=== PATIENT | female | born 1970 | race Caucasian/White ===

== ENCOUNTER → 2016-04-22 | Outpatient (CLI) | payer MEDICARE ==
[2016-04-22 08:54] LABS: ANION GAP 14 (5-19); BLOOD UREA NITROGEN 20 mg/dL (7-20); CALCIUM 10.3 mg/dL (8.4-10.2); CARBON DIOXIDE 31 mmol/L (22-30); CHLORIDE 96 mmol/L (98-107); GLUCOSE 123 mg/dL (75-110); POTASSIUM 3.7 mmol/L (3.6-5.0)
== END ==
LOC: LAB 08:10
PROVIDERS: ATTEND Internal Medicine
DX: I50.22 Chronic systolic (congestive) heart failure (principal)
CPT/HCPCS: 36415; 80048

== ENCOUNTER → 2016-05-12 | Outpatient (CLI) | payer MEDICARE ==
[2016-05-12 15:40] LABS: ANION GAP 15 (5-19); BLOOD UREA NITROGEN 21 mg/dL (7-20); CARBON DIOXIDE 30 mmol/L (22-30); CHLORIDE 97 mmol/L (98-107); CREATININE RESULT 0.76 mg/dL (0.52-1.25); GLUCOSE 105 mg/dL (75-110); POTASSIUM 3.6 mmol/L (3.6-5.0); SODIUM 141.9 mmol/L (137-145)
== END ==
LOC: LAB 15:03
PROVIDERS: ATTEND Internal Medicine
DX: I42.8 Other cardiomyopathies (principal); Z79.899 Other long term (current) drug therapy
CPT/HCPCS: 36415; 80048

== ENCOUNTER → 2016-06-11 | Outpatient (CLI) | payer MEDICARE, MEDICAID ==
[2016-06-11 15:05] LABS: ALBUMIN 4.8 g/dL (3.5-5.0); ANION GAP 18 (5-19); BLOOD UREA NITROGEN 18 mg/dL (7-20); CALCIUM 10.6 mg/dL (8.4-10.2); CARBON DIOXIDE 34 mmol/L (22-30); CHLORIDE 90 mmol/L (98-107); CREATININE RESULT 1.02 mg/dL (0.52-1.25); GLUCOSE 173 mg/dL (75-110); PHOSPHORUS 3.3 mg/dL (2.5-4.5); POTASSIUM 3.9 mmol/L (3.6-5.0); SODIUM 142.3 mmol/L (137-145)
== END ==
LOC: LAB 14:25
PROVIDERS: ATTEND Internal Medicine
DX: E27.49 Other adrenocortical insufficiency (principal)
CPT/HCPCS: 36415; 80069

== ENCOUNTER → 2016-07-03 | Outpatient (CLI) | payer MEDICARE, MEDICAID ==
[2016-07-03 13:22] LABS: ALBUMIN 4.1 g/dL (3.5-5.0); ANION GAP 13 (5-19); BLOOD UREA NITROGEN 19 mg/dL (7-20); CALCIUM 9.9 mg/dL (8.4-10.2); CARBON DIOXIDE 34 mmol/L (22-30); CHLORIDE 90 mmol/L (98-107); CREATININE RESULT 0.95 mg/dL (0.52-1.25); GLUCOSE 157 mg/dL (75-110); PHOSPHORUS 2.8 mg/dL (2.5-4.5)
[2016-07-04 10:17] LABS: POTASSIUM 2.9 mmol/L (3.6-5.0)
[2016-07-04 13:47] LABS: VITAMIN D 25-HYDROXY 24.3 ng/mL (30.0-100.0)
== END ==
LOC: LAB 12:39
PROVIDERS: ATTEND Internal Medicine
DX: E83.52 Hypercalcemia (principal); E27.49 Other adrenocortical insufficiency
CPT/HCPCS: 36415; 80069; 82306; 83970

== ENCOUNTER 2016-07-18 04:51 | Emergency (ER) | payer MEDICARE, MEDICAID ==
[2016-07-18] MEDS ORDERED: ASPIRIN 81 MG TABLET, CHEWABLE PO ONE (05:01)
--- NOTE | 2016-07-18 05:59 | RADIOLOGY REPORT (SQ) ---
EXAM DESCRIPTION: CHEST SINGLE VIEW COMPLETED DATE/TIME: 07/18/2016 5:48 am REASON FOR STUDY: CHEST PAIN COMPARISON: Chest x-ray 10/25/2015. EXAM PARAMETERS: NUMBER OF VIEWS: One view. TECHNIQUE: Single frontal radiographic view of the chest acquired. RADIATION DOSE: NA LIMITATIONS: None. FINDINGS: LUNGS AND PLEURA: No consolidation, pneumothorax or pleural effusion. MEDIASTINUM AND HILAR STRUCTURES: No masses. Contour normal. HEART AND VASCULAR STRUCTURES: Heart normal in size. No evidence for failure. BONES: No acute findings. HARDWARE: There is a left-sided pacemaker. IMPRESSION: NO ACUTE RADIOGRAPHIC FINDING IN THE CHEST. TECHNICAL DOCUMENTATION: JOB ID: [id number]
[2016-07-18 06:04] LABS: ABSOLUTE EOSINOPHILS # (AUTO) 0.3 10^3/uL (0.0-0.6); ABSOLUTE MONOCYTES (AUTO) 0.6 10^3/uL (0.1-1.4); ABSOLUTE NEUT (AUTO) 4.2 10^3/uL (1.7-8.2); BASOPHILS % (AUTO) 0.4 % (0-2); EOSINOPHILS % (AUTO) 3.7 % (0-6); HEMOGLOBIN 11.6 g/dL (12.0-15.5); HGB HCT DIFFERENCE -0.2; LYMPHOCYTES % (AUTO) 36.5 % (13-45); MEAN CORPUSCULAR HEMOGLOBIN 30.3 pg (27.0-33.4); MEAN CORPUSCULAR HGB CONC 33.2 g/dL (32.0-36.0); MEAN CORPUSCULAR VOLUME 92 fl (80-97); MONOCYTES % (AUTO) 7.3 % (3-13); RED BLOOD COUNT 3.82 10^6/uL (3.72-5.28); RED CELL DISTRIBUTION WIDTH 14.9 % (11.5-14.0); SEGMENTED NEUTROPHILS % (AUTO) 52.1 % (42-78); WHITE BLOOD COUNT 8.1 10^3/uL (4.0-10.5)
[2016-07-18 06:16] LABS: ALANINE AMINOTRANSFERASE 32 U/L (9-52); ALKALINE PHOSPHATASE 73 U/L (38-126); ANION GAP 13 (5-19); ASPARTATE AMINO TRANSFERASE 25 U/L (14-36); BILIRUBIN,DIRECT 0.3 mg/dL (0.0-0.4); BILIRUBIN,TOTAL 0.6 mg/dL (0.2-1.3); BLOOD UREA NITROGEN 22 mg/dL (7-20); CALCIUM 9.7 mg/dL (8.4-10.2); CARBON DIOXIDE 31 mmol/L (22-30); CHLORIDE 98 mmol/L (98-107); CREATINE KINASE 101 U/L (30-135); CREATININE RESULT 1.52 mg/dL (0.52-1.25); GLUCOSE 131 mg/dL (75-110); POTASSIUM 3.5 mmol/L (3.6-5.0); SODIUM 141.6 mmol/L (137-145); TOTAL PROTEIN 7.1 g/dL (6.3-8.2)
[2016-07-18 06:28] LABS: CREATINE KINASE MB 0.79 ng/mL (<4.55); TROPONIN I 0.021 ng/mL
[2016-07-18] MEDS ORDERED: PROMETHAZINE HCL 25 MG TABLET PO ONE (06:39)
--- NOTE | 2016-07-18 06:40 | ER Document Report ---
ED Cardiac - General Mode of Arrival: Medic Information source: Patient TRAVEL OUTSIDE OF THE U.[place]. IN LAST 30 DAYS: No - HPI Patient complains to provider of: Chest pain, Shortness of breath Chest pain location: Under breast - left Quality of pain: Sharp, Stabbing Cardiac risk factors: Hx CHF. denies: Hx NE Associated symptoms: Other - see notes above0 Exacerbated by: Denies <ERIKA DOVER - Last Filed: 07/18/16 14:42> <MARIA ESTHER BROWN - Last Filed: 07/18/16 15:08> - General Chief Complaint: Chest Pain Stated Complaint: CHEST PAIN Time Seen by Provider: 07/18/16 06:20 Notes: 46 year old female with history of non-ischemic cardiomyopathy causing CHF ( with a pacemaker), hypertension, and hypokalemia presents to the ED via EMS complaining of intermittent sharp, stabbing left chest pain that started 5 days ago. Patient reports that her chest pain episodes last anywhere from 10-30 seconds. Patient claims that her symptoms might have precipitated after 'over doing' it 6 days ago. 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 Patient is additionally complaining of nausea, shortness of breath (associated with the chest pains), edema, vomiting, and 'having the shakes' which started last night. Patient's reports that the patient was hospitalized for 2 weeks at [facility] and discharged on 07/04/2016 for hypokalemia and received '60 bags of potassium on top of her daily oral potassium'. Patient reports that her lowest potassium count has been 2.3. Patient states that she has seen an hair and makeup designer regarding her hypokalemia and it was determined that it may be related to to her gastric sleeve. Patient is currently on potassium supplements and denies taking any magnesium supplements. Patient reports that she does not have stress tests performed because she has syncopal episodes during them, but has had cardiac catheterizations in the past with the most recent in January 2016 which was negative for any blockages. Patient's last ejection fraction was 20%. Patient claims that she is trying to get onto the heart transplant list. Senior Staff Accountant: Dr. Kirkpatrick ([facility]) (ERIKA DOVER) - Related Data Allergies/Adverse Reactions: clonazepam [From Klonopin] Allergy (Verified 04/15/15 16:28) ketorolac tromethamine [From Toradol] Allergy (Verified 04/15/15 16:28) lisinopril [Lisinopril] Allergy (Verified 04/15/15 16:28) morphine [Morphine] Allergy (Verified 04/15/15 16:28) tramadol [Tramadol] Allergy (Verified 04/15/15 16:28) Past Medical History - General Information source: Patient - Social History Smoking Status: Never Smoker Chew tobacco use (# tins/day): No Frequency of alcohol use: None Drug Abuse: None Family History: DM, Hypertension, Other - seizures Patient has suicidal ideation: No Patient has homicidal ideation: No - Past Medical History Cardiac Medical History: Reports: Hx Congestive Heart Failure - Congestive cardiomyopathy, Hx Hypertension Pulmonary Medical History: Reports: Hx Asthma Denies: Hx Tuberculosis Endocrine Medical History: Reports: Other - hypokalemia Renal/ Medical History: Denies: Hx Peritoneal Dialysis GI Medical History: Reports: Hx Gastroesophageal Reflux Disease Psychiatric Medical History: Reports: Hx Depression Past Surgical History: Reports: Hx Cardiac Catheterization - Recent January 2016, Hx Cholecystectomy, Hx Orthopedic Surgery - R hip labral tear repair, Hx Pacemaker - Pacemaker/defibrillator, Hx Tubal Ligation - Immunizations Hx Diphtheria, Pertussis, Tetanus Vaccination: Yes Hx Pneumococcal Vaccination: 02/23/12 <ERIKA DOVER - Last Filed: 07/18/16 14:42> Review of Systems - Review of Systems Constitutional: No symptoms reported EENT: No symptoms reported Cardiovascular: See HPI, Chest pain - Left sided, Edema Respiratory: See HPI, Short of breath Gastrointestinal: See HPI, Nausea, Vomiting. denies: Diarrhea Genitourinary: No symptoms reported Female Genitourinary: No symptoms reported Musculoskeletal: No symptoms reported Skin: No symptoms reported Hematologic/Lymphatic: No symptoms reported Neurological/Psychological: No symptoms reported -: Yes All other systems reviewed and negative <ERIKA DOVER - Last Filed: 07/18/16 14:42> Physical Exam <ERIKA DOVER - Last Filed: 07/18/16 14:42> <MARIA ESTHER BROWN - Last Filed: 07/18/16 15:08> - Vital signs Vitals: Temp Pulse Resp BP Pulse Ox 98.4 F 84 16 118/95 H 98 07/18/16 04:59 07/18/16 04:59 07/18/16 04:59 07/18/16 04:59 07/18/16 04:59 - Notes Notes: GENERAL: Alert, interacts well. No acute distress. HEAD: Normocephalic, atraumatic. EYES: Pupils equal, round, and reactive to light. Extraocular movements intact. ENT: Oral mucosa moist. NECK: Full range of motion. Supple. Trachea midline. LUNGS: Clear to auscultation bilaterally, no wheezes, rales, or rhonchi. No respiratory distress. HEART: Regular rate and rhythm. No murmurs, gallops, or rubs. Wincing in the room correlating with a PVC on monitor. ABDOMEN: Soft, non-tender. Non-distended. Bowel sounds present in all 4 quadrants. Overweight. EXTREMITIES: Moves all 4 extremities spontaneously. No edema, radial and dorsalis pedis pulses 2/4 bilaterally. No cyanosis. NEUROLOGICAL: Alert and oriented x3. Normal speech. Biceps and patellar DTRs 2+ bilaterally. PSYCH: Normal affect, normal mood. SKIN: Warm, dry, normal turgor. No rashes or lesions noted. (ERIKA DOVER) Course - Laboratory Result Diagrams: 07/18/16 05:48 07/18/16 05:48 - Diagnostic Test Radiology reviewed: Image reviewed, Reports reviewed - Consults [facility] Time consulted: 11:33 [facility] Time consulted: 13:00 <ERIKA DOVER - Last Filed: 07/18/16 14:42> - Laboratory Result Diagrams: 07/18/16 05:48 07/18/16 05:48 <MARIA ESTHER BROWN - Last Filed: 07/18/16 15:08> - Re-evaluation Re-evalutation: 07/18/16 13:21 CBC shows mild chronic anemia with hemoglobin 11.6, platelets normal, potassium is remarkably good for this patient at 3.5, magnesium is normal, BUN and creatinine are both elevated at 22 and 1.52 respectively, cardiac enzymes are negative 2 and trending downward troponin is initially 0.021 and then 4 hours later is 0.019. ProBNP minimally elevated at 693, patient does not have any rales nor is there any vascular congestion on her chest x-ray. EKG has new T- wave inversions in V5 and V6 that do not involve her change in any way over the course of the visit. On the emergency department patient has had several PVCs although not more than 10 in an hour, when she has these PVCs they do correspond with a recurrence of her pain. This pain does not appear to be ischemic cardiac in nature. Discussed my findings with Mame Delatorre' s nurse the patient's washery boss from [facility], agrees that there is no indication for admission at this time, gave me her phone number so the patient could call and discuss any further concerns with them. Patient will be discharged to home. (MARIA ESTHER BROWN) - Vital Signs Vital signs: Temp Pulse Resp BP Pulse Ox 97.9 F 84 17 111/69 100 07/18/16 13:30 07/18/16 04:59 07/18/16 13:30 07/18/16 13:30 07/18/16 13:30 - Laboratory Laboratory results interpreted by me: 07/18/16 07/18/16 07/18/16 05:48 05:48 05:48 Hgb 11.6 L Hct 35.0 L RDW 14.9 H Potassium 3.5 L Carbon Dioxide 31 H BUN 22 H Creatinine 1.52 H Est GFR ( Amer) 45 L Est GFR (Non-Af Amer) 37 L Glucose 131 H NT-Pro-B Natriuret Pep 693 H - Diagnostic Test Radiology results interpreted by me: 07/18/16 07:30 Chest x-ray is negative for CHF. (ERIKA DOVER) - EKG Interpretation by Me Additional EKG results interpreted by me: 07/18/16 13:21 Initial EKG shows atrially sensed ventricularly paced rhythm at a rate of 81 with an underlying sinus mechanism, normal axis, interventricular conduction delay, slow R-wave progression, new T-wave inversions in V5 and V6 with some T- wave flattening in 2 and aVF per my interpretation. Repeat EKG continues to show an atrially sensed ventricularly paced rhythm at a rate of 77 with an underlying sinus mechanism, persistently inverted T-wave noted in V5 and V6 that are unchanged over the course of approximately 4 hours, no ST segment elevations or depressions per my interpretation. (MARIA ESTHER BROWN) - Consults [facility] Reason for consultation: 07/18/16 11:33 Head Of Drama for [facility] was called in order to consult Dr. Kirkpatrick, the patient's washery boss, but was informed that Dr. Kirkpatrick is away and was told to call a cardiology clinic that is covering for him. The cardiology clinic was called and I am awaiting a return phone call. (ERIKA DOVER) Mame Johnson Reason for consultation: 07/18/16 13:00 Patient was discussed with Mame Johnson who states that she agrees with the treatment plan and the patient should be discharged home. (ERIKA DOVER) Discharge <ERIKA DOVER - Last Filed: 07/18/16 14:42> <MARIA ESTHER BROWN - Last Filed: 07/18/16 15:08> - Discharge Clinical Impression: Chest pain with low risk of acute coronary syndrome, Symptomatic PVCs, Hypokalemia Condition: Stable Disposition: HOME, SELF-CARE Additional Instructions: Should your chest pain worsen or you develop any new or concerning symptoms please return to the emergency department. If you have further concerns that you wished to discuss with your washery boss or his nurse Mame Johnson please call [phone]. Scribe Attestation: 07/18/16 15:08 I personally performed the services described in the documentation, reviewed and edited the documentation which was dictated to the scribe in my presence, and it accurately records my words and actions. (MARIA ESTHER BROWN) Scribe Documentation - Scribe Written by Gege:: Gege Nunez, 07/18/2016 0730 acting as scribe for :: Melisa <ERIKA DOVER - Last Filed: 07/18/16 14:42>
--- NOTE | 2016-07-18 08:55 | EKG REPORT ---
SEVERITY:- ABNORMAL ECG - ATRIAL-SENSED VENTRICULAR-PACED RHYTHM : Confirmed by: Stacy Fleming 18-Jul-2016 08:55:18
[2016-07-18] MEDS ORDERED: NITROGLYCERIN 0.4 MG/TAB 25 TAB/BOTTLE SL PRN (09:28)
[2016-07-18] MEDS ORDERED: ACETAMINOPHEN 325 MG TABLET PO ONE (09:29)
--- NOTE | 2016-07-18 09:54 | EKG REPORT ---
SEVERITY:- ABNORMAL ECG - ATRIAL-SENSED VENTRICULAR-PACED RHYTHM : Confirmed by: Stacy Fleming 18-Jul-2016 09:54:21
[2016-07-18 13:43] VITALS: BP 111/69
== END 2016-07-18 13:43 | disposition home or self-care (01) ==
LOC: ER 04:51
DX: R07.9 Chest pain, unspecified (principal); I49.3 Ventricular premature depolarization; E87.6 Hypokalemia; I50.9 Heart failure, unspecified; I10 Essential (primary) hypertension; R11.0 Nausea; R06.02 Shortness of breath; R60.0 Localized edema
CPT/HCPCS: 93005; 99285; 36415; 82553; 82550; 83735; 85025; 80053; 84484; 83880; 71010; 93010; A9270 ×2

== ENCOUNTER 2016-07-19 07:38 | Emergency (ER) | payer MEDICARE, MEDICAID ==
[2016-07-19 08:22] LABS: ABSOLUTE EOSINOPHILS # (AUTO) 0.1 10^3/uL (0.0-0.6); ABSOLUTE LYMPHOCYTES (AUTO) 1.5 10^3/uL (0.5-4.7); ABSOLUTE MONOCYTES (AUTO) 0.4 10^3/uL (0.1-1.4); ABSOLUTE NEUT (AUTO) 9.4 10^3/uL (1.7-8.2); BASOPHILS % (AUTO) 0.4 % (0-2); HEMATOCRIT 40.2 % (36.0-47.0); HEMOGLOBIN 13.4 g/dL (12.0-15.5); LYMPHOCYTES % (AUTO) 13.2 % (13-45); MEAN CORPUSCULAR HEMOGLOBIN 30.6 pg (27.0-33.4); MEAN CORPUSCULAR HGB CONC 33.3 g/dL (32.0-36.0); MEAN CORPUSCULAR VOLUME 92 fl (80-97); MONOCYTES % (AUTO) 3.3 % (3-13); RED BLOOD COUNT 4.37 10^6/uL (3.72-5.28); SEGMENTED NEUTROPHILS % (AUTO) 82.1 % (42-78); WHITE BLOOD COUNT 11.4 10^3/uL (4.0-10.5)
[2016-07-19 08:39] LABS: ALANINE AMINOTRANSFERASE 35 U/L (9-52); ALBUMIN 4.5 g/dL (3.5-5.0); ALKALINE PHOSPHATASE 80 U/L (38-126); ANION GAP 18 (5-19); ASPARTATE AMINO TRANSFERASE 28 U/L (14-36); BILIRUBIN,DIRECT 0.4 mg/dL (0.0-0.4); BILIRUBIN,TOTAL 0.7 mg/dL (0.2-1.3); BLOOD UREA NITROGEN 16 mg/dL (7-20); CALCIUM 10.5 mg/dL (8.4-10.2); CARBON DIOXIDE 33 mmol/L (22-30); CHLORIDE 95 mmol/L (98-107); CREATINE KINASE 130 U/L (30-135); CREATININE RESULT 1.51 mg/dL (0.52-1.25); GLUCOSE 167 mg/dL (75-110); POTASSIUM 3.3 mmol/L (3.6-5.0); SODIUM 146.4 mmol/L (137-145); TOTAL PROTEIN 8.4 g/dL (6.3-8.2)
[2016-07-19 08:51] LABS: CREATINE KINASE MB 0.9 ng/mL (<4.55); TROPONIN I 0.02 ng/mL
--- NOTE | 2016-07-19 08:51 | RADIOLOGY REPORT (SQ) ---
EXAM DESCRIPTION: CHEST SINGLE VIEW COMPLETED DATE/TIME: 07/19/2016 8:25 am REASON FOR STUDY: bed 16 cp COMPARISON: CT chest 12/27/2012 Chest films 01/07/2015, 10/25/2015, 07/18/2016 EXAM PARAMETERS: NUMBER OF VIEWS: One view. TECHNIQUE: Single frontal radiographic view of the chest acquired. RADIATION DOSE: NA LIMITATIONS: None. FINDINGS: LUNGS AND PLEURA: No opacities, masses or pneumothorax. No pleural effusion. MEDIASTINUM AND HILAR STRUCTURES: No masses. Contour normal. HEART AND VASCULAR STRUCTURES: Heart normal in size. Normal vasculature. BONES: No acute findings. HARDWARE: Left-sided pacemaker/defibrillator. OTHER: No other significant finding. IMPRESSION: NO ACUTE RADIOGRAPHIC FINDING IN THE CHEST. TECHNICAL DOCUMENTATION: JOB ID: [id number]
[2016-07-19] MEDS ORDERED: DIPHENHYDRAMINE HCL 50 MG/ML VIAL IV ONE (09:35)
[2016-07-19] MEDS ORDERED: METOCLOPRAMIDE HCL INJ/PF 10 MG/2 ML SDV IV ONE (09:35)
--- NOTE | 2016-07-19 10:51 | EKG REPORT ---
SEVERITY:- ABNORMAL ECG - ATRIAL-SENSED VENTRICULAR-PACED COMPLEXES : Confirmed by: Stacy Fleming 19-Jul-2016 10:51:08
[2016-07-19] MEDS ORDERED: HALOPERIDOL LACTATE INJ 5 MG/1 ML VIAL IV ONE (11:56)
--- NOTE | 2016-07-19 13:43 | ER Document Report ---
ED General - General Chief Complaint: Chest Pain Stated Complaint: CHEST PAIN Time Seen by Provider: 07/19/16 09:14 TRAVEL OUTSIDE OF THE U.[place]. IN LAST 30 DAYS: No - HPI Patient complains to provider of: Chest pain pain dry heaves Notes: 46 year old female with history of non-ischemic cardiomyopathy causing CHF ( with a pacemaker), hypertension, and hypokalemia presents to the ED with per nursing staff chest pain that started 5 days ago. cardiac catheterizations in the past with the most recent in January 2016 which was negative for any blockages. Patient's last ejection fraction was 20%. Patient claims that she is trying to get onto the heart transplant list. Patient states that although she is still having pain in her chest similar to her previous visit of the real reason she is coming in today is because of her dry heaving. Patient states that she is nauseous at taking medication at home also received Zofran here with no relief. Patient denies fever chills vomiting denies diarrhea any recent travel or recent antibiotics denies any sick contacts. Upon my evaluation patient lying on her side with a emesis bag patient is dry heaving with no vomitus seen - Related Data Allergies/Adverse Reactions: clonazepam [From Klonopin] Allergy (Verified 07/19/16 08:09) ketorolac tromethamine [From Toradol] Allergy (Verified 07/19/16 08:09) lisinopril [Lisinopril] Allergy (Verified 07/19/16 08:09) morphine [Morphine] Allergy (Verified 07/19/16 08:09) tramadol [Tramadol] Allergy (Verified 07/19/16 08:09) Past Medical History - Social History Smoking Status: Never Smoker Frequency of alcohol use: None Drug Abuse: None Family History: DM, Hypertension, Other - seizures - Past Medical History Cardiac Medical History: Reports: Hx Congestive Heart Failure - Congestive cardiomyopathy, Hx Coronary Artery Disease, Hx Hypertension Pulmonary Medical History: Reports: Hx Asthma Denies: Hx Tuberculosis Renal/ Medical History: Denies: Hx Peritoneal Dialysis GI Medical History: Reports: Hx Gastroesophageal Reflux Disease Psychiatric Medical History: Reports: Hx Depression Past Surgical History: Reports: Hx Cardiac Catheterization - Recent January 2016, Hx Cholecystectomy, Hx Orthopedic Surgery - R hip labral tear repair, Hx Pacemaker - Pacemaker/defibrillator, Hx Tubal Ligation - Immunizations Hx Diphtheria, Pertussis, Tetanus Vaccination: Yes Hx Pneumococcal Vaccination: 02/23/12 Review of Systems - Review of Systems Constitutional: No symptoms reported EENT: No symptoms reported Cardiovascular: Chest pain Respiratory: No symptoms reported Gastrointestinal: Nausea Genitourinary: No symptoms reported Female Genitourinary: No symptoms reported Musculoskeletal: No symptoms reported Skin: No symptoms reported Hematologic/Lymphatic: No symptoms reported Neurological/Psychological: No symptoms reported -: Yes All other systems reviewed and negative Physical Exam - Vital signs Vitals: Resp Pulse Ox 20 97 07/19/16 07:50 07/19/16 07:50 Interpretation: Normal - General General appearance: Appears well, Alert - HEENT Head: Normocephalic, Atraumatic Eyes: Normal Pupils: PERRL - Respiratory Respiratory status: No respiratory distress Chest status: Nontender Breath sounds: Normal Chest palpation: Normal - Cardiovascular Rhythm: Regular Heart sounds: Normal auscultation Murmur: No - Abdominal Inspection: Normal Distension: No distension Bowel sounds: Normal Tenderness: Nontender Organomegaly: No organomegaly - Back Back: Normal, Nontender - Extremities General upper extremity: Normal inspection, Nontender, Normal color, Normal ROM , Normal temperature General lower extremity: Normal inspection, Nontender, Normal color, Normal ROM , Normal temperature, Normal weight bearing. No: Maxine's sign - Neurological Neuro grossly intact: Yes Cognition: Normal Orientation: AAOx4 Ramila Coma Scale Eye Opening: Spontaneous Jerome Coma Scale Verbal: Oriented Ramila Coma Scale Motor: Obeys Commands Jerome Coma Scale Total: 15 Speech: Normal Motor strength normal: LUE, RUE, LLE, RLE Sensory: Normal - Psychological Associated symptoms: Normal affect, Normal mood - Skin Skin Temperature: Warm Skin Moisture: Dry Skin Color: Normal Course - Re-evaluation Re-evalutation: 07/19/16 15:30 Patient is coming in for evaluation of chronic chest pain and dry heaves. Patient's troponins are otherwise negative. Laboratories showed a low potassium patient was given antiemetic medication however still complains of dry heaves patient still has no vomitus. Patient was given 2 mg of IV Haldol. Multiple evaluations walking by the patient's room patient is resting comfortably sleeping. Upon last evaluation I did arouse the patient and inform her of her negative cardiac studies and she will be discharged. Patient states that she is still having dry heaves and has had dry heaves for some time now. Plan the patient to be monitored her here for some time no evidence of any further dry heaves and nausea will prescribe her Phenergan suppositories patient will be discharged home to follow-up with primary care physician and chief of field operations at [facility] - Vital Signs Vital signs: Temp Pulse Resp BP Pulse Ox 98.1 F 76 18 102/81 95 07/19/16 13:22 07/19/16 11:00 07/19/16 13:22 07/19/16 13:22 07/19/16 13:22 - Laboratory Result Diagrams: 07/19/16 08:14 07/19/16 08:14 Laboratory results interpreted by me: 07/19/16 07/19/16 08:14 08:14 WBC 11.4 H RDW 15.0 H Seg Neutrophils % 82.1 H Absolute Neutrophils 9.4 H Sodium 146.4 H Potassium 3.3 L Chloride 95 L Carbon Dioxide 33 H Creatinine 1.51 H Est GFR ( Amer) 45 L Est GFR (Non-Af Amer) 37 L Glucose 167 H Calcium 10.5 H Total Protein 8.4 H Discharge - Discharge Clinical Impression: Dry heaves, Hypokalemia, Chest pain with low risk of acute coronary syndrome Nausea & vomiting Qualifiers: Vomiting type: unspecified Vomiting Intractability: unspecified Qualified Code( s): R11.2 - Nausea with vomiting, unspecified Condition: Good Disposition: HOME, SELF-CARE Instructions: Vomiting ([facility]), Chest Pain of Unclear Cause ([facility]) Additional Instructions: Your lab work today does not show any critical etiology. Please make sure to follow-up with your chief of field operations. Take medication as prescribed. Return to the ER symptoms worsen. Prescriptions: Promethazine HCl [Phenergan 25 mg Supp.rect] 1 supp LA Q6H #12 supp.rect Referrals: NINO TEE MD [Primary Care Provider] - Follow up as needed
[2016-07-19 14:00] VITALS: BP 102/81
== END 2016-07-19 14:08 | disposition home or self-care (01) ==
LOC: ER 07:38
DX: R07.9 Chest pain, unspecified (principal); E87.6 Hypokalemia; R11.2 Nausea with vomiting, unspecified; I50.9 Heart failure, unspecified; I10 Essential (primary) hypertension
CPT/HCPCS: 93005; 99285; 96374; 96375; 36415; 82553; 82550; 85025; 80053; 84484; 71010; 93010; J1200; J1630; J2765

== ENCOUNTER 2017-09-17 11:24 | Emergency (ER) | payer MEDICARE, MEDICAID ==
--- NOTE | 2017-09-17 11:48 | ER Document Report ---
ED Medical Screen (RME) - General Chief Complaint: Chest Pain Stated Complaint: CHEST PAIN Time Seen by Provider: 09/17/17 11:47 Mode of Arrival: Wheelchair Information source: Patient, Relative TRAVEL OUTSIDE OF THE [place]. IN LAST 30 DAYS: No - HPI Patient complains to provider of: cp Onset: Just prior to arrival - pt with acute onset of SSCP earlier this morning (Pt. has LVAD placed at [place]) - she has taken her ASA today - Related Data Allergies/Adverse Reactions: clonazepam [From Klonopin] Allergy (Verified 09/17/17 11:26) ketorolac tromethamine [From Toradol] Allergy (Verified 09/17/17 11:26) lisinopril [Lisinopril] Allergy (Verified 09/17/17 11:26) morphine [Morphine] Allergy (Verified 09/17/17 11:26) tramadol [Tramadol] Allergy (Verified 09/17/17 11:26) Past Medical History - Social History Frequency of alcohol use: None Drug Abuse: None - Past Medical History Cardiac Medical History: Reports: Hx Congestive Heart Failure - Congestive cardiomyopathy, Hx Coronary Artery Disease, Hx Hypertension Pulmonary Medical History: Reports: Hx Asthma Denies: Hx Tuberculosis Renal/ Medical History: Denies: Hx Peritoneal Dialysis GI Medical History: Reports: Hx Gastroesophageal Reflux Disease Psychiatric Medical History: Reports: Hx Depression Past Surgical History: Reports: Hx Cardiac Catheterization - Recent January 2016, Hx Cholecystectomy, Hx Orthopedic Surgery - R hip labral tear repair, Hx Pacemaker - Pacemaker/defibrillator, Hx Tubal Ligation - Immunizations Hx Diphtheria, Pertussis, Tetanus Vaccination: Yes Physical Exam - Vital signs Vitals: Temp Pulse Resp BP Pulse Ox 99.0 F 91 18 116/90 H 100 09/17/17 11:41 09/17/17 11:41 09/17/17 11:41 09/17/17 11:41 09/17/17 11:41 Course - Vital Signs Vital signs: Temp Pulse Resp BP Pulse Ox 99.0 F 91 18 116/90 H 100 09/17/17 11:41 09/17/17 11:41 09/17/17 11:41 09/17/17 11:41 09/17/17 11:41 Doctor's Discharge - Discharge Referrals: SAUL HUBER MD [Primary Care Provider] - Follow up as needed
[2017-09-17 12:10] LABS: ABSOLUTE BASOPHILS # (AUTO) 0.1 10^3/uL (0.0-0.2); ABSOLUTE EOSINOPHILS # (AUTO) 0.4 10^3/uL (0.0-0.6); ABSOLUTE LYMPHOCYTES (AUTO) 1.6 10^3/uL (0.5-4.7); ABSOLUTE MONOCYTES (AUTO) 0.5 10^3/uL (0.1-1.4); ABSOLUTE NEUT (AUTO) 6.4 10^3/uL (1.7-8.2); BASOPHILS % (AUTO) 1.2 % (0-2); EOSINOPHILS % (AUTO) 4.2 % (0-6); HEMOGLOBIN 10.3 g/dL (12.0-15.5); LYMPHOCYTES % (AUTO) 17.3 % (13-45); MEAN CORPUSCULAR HEMOGLOBIN 28.6 pg (27.0-33.4); MEAN CORPUSCULAR HGB CONC 33.3 g/dL (32.0-36.0); MEAN CORPUSCULAR VOLUME 86 fl (80-97); MONOCYTES % (AUTO) 5.2 % (3-13); PLATELET COUNT 379 10^3/uL (150-450); RED BLOOD COUNT 3.62 10^6/uL (3.72-5.28); RED CELL DISTRIBUTION WIDTH 16.2 % (11.5-14.0); SEGMENTED NEUTROPHILS % (AUTO) 72.1 % (42-78); TOTAL CELLS COUNTED % (AUTO) 100 %; WHITE BLOOD COUNT 8.9 10^3/uL (4.0-10.5)
--- NOTE | 2017-09-17 12:32 | RADIOLOGY REPORT (SQ) ---
EXAM DESCRIPTION: CHEST 2 VIEWS COMPLETED DATE/TIME: 09/17/2017 12:18 pm REASON FOR STUDY: cp COMPARISON: September 2015 EXAM PARAMETERS: NUMBER OF VIEWS: two views TECHNIQUE: Digital Frontal and Lateral radiographic views of the chest acquired. RADIATION DOSE: NA LIMITATIONS: none FINDINGS: LUNGS AND PLEURA: No opacities, masses or pneumothorax. No pleural effusion. MEDIASTINUM AND HILAR STRUCTURES: No masses or contour abnormalities. HEART AND VASCULAR STRUCTURES: The configuration of the heart mediastinal structures is unchanged. BONES: No acute findings. HARDWARE: Patient is status post median sternotomy. AC ID device is unchanged in position. Ventricu lar assist device is identified. OTHER: No other significant finding. IMPRESSION: NO ACUTE RADIOGRAPHIC FINDING IN THE CHEST. Other findings as noted above TECHNICAL DOCUMENTATION: JOB ID: [id number] [employer]- All Rights Reserved Reading location - IP/workstation name: [email or web address]
[2017-09-17] MEDS ORDERED: ONDANSETRON HCL INJ/PF 4 MG/2 ML SDV IV ONE ×2 (12:40→21:22)
[2017-09-17] MEDS ORDERED: FENTANYL CITRATE INJ/PF 100 MCG/2 ML AMPUL IV ONE (12:41)
[2017-09-17 12:45] LABS: INTERNATIONAL RATION (INR) 1.83
[2017-09-17 14:04] LABS: ALANINE AMINOTRANSFERASE 23 U/L (9-52); ALBUMIN 3.9 g/dL (3.5-5.0); ALKALINE PHOSPHATASE 72 U/L (38-126); ANION GAP 10 (5-19); ASPARTATE AMINO TRANSFERASE 25 U/L (14-36); BILIRUBIN,DIRECT 0.2 mg/dL (0.0-0.4); BILIRUBIN,TOTAL 0.2 mg/dL (0.2-1.3); BLOOD UREA NITROGEN 17 mg/dL (7-20); CALCIUM 9.6 mg/dL (8.4-10.2); CARBON DIOXIDE 31 mmol/L (22-30); CHLORIDE 103 mmol/L (98-107); CREATINE KINASE 51 U/L (30-135); GLUCOSE 87 mg/dL (75-110); SODIUM 143.8 mmol/L (137-145); TOTAL PROTEIN 7.1 g/dL (6.3-8.2)
[2017-09-17 14:17] LABS: CREATINE KINASE MB 0.41 ng/mL (<4.55); TROPONIN I < 0.012 ng/mL
[2017-09-17] MEDS ORDERED: MORPHINE SULFATE 10 MG/ML INJ IV ONE (14:46)
[2017-09-17 15:30] VITALS: BP 90/77
--- NOTE | 2017-09-17 15:58 | RADIOLOGY REPORT (SQ) ---
EXAM DESCRIPTION: CTA CHEST COMPLETED DATE/TIME: 09/17/2017 3:39 pm REASON FOR STUDY: Left chest pain, LVAD COMPARISON: CT angio chest 12/27/2012, 12/07/2011, 05/19/2011, 08/20/2010 TECHNIQUE: CT scan of the chest performed using helical scanning technique with dynamic intravenous contrast injection. Images reviewed with lung, soft tissue and bone windows. Reconstructed coronal and sagittal MPR images reviewed. Additional 3 dimensional post-processing performed to develop Maximal Intensity Projection images ([place] P). All images stored on PACS. All CT scanners at this facility use dose modulation, iterative reconstruction, and/or weight based d osing when appropriate to reduce radiation dose to as low as reasonably achievable (ALARA). [facility]: Dose Right [facility]: CareDose [facility]: Dose Right [facility]: Teradose 4D [facility]: [employer] CONTRAST TYPE AND DOSE: contrast/concentration: Isovue 370.00 mg/ml; Total Contrast Delivered: 78.0 ml; Total Saline Delivered: 70.0 ml Contrast bolus adequate for pulmonary arteries and aorta. RENAL FUNCTION: Creatinine 0.69 RADIATION DOSE: CT Rad equipment meets quality standard of care and radiation dose reduction techniq ues were employed. CTDIvol: 19.0 - 19.8 mGy. DLP: 709 mGy-cm. . LIMITATIONS: None. FINDINGS: LUNGS AND PLEURA: Minimal left posterior costophrenic sulcus bandlike scarring. No acute infiltrates. No pleural effusion. No pneumothorax. No worrisome pulmonary nodules. AORTA AND GREAT VESSELS: No aneurysm. Contrast bolus not optimized for the aorta. HEART: Left ventricular assist device is present in the chest, moderate to marked cardiomegaly. Old sternotomy. PULMONARY ARTERIES: No emboli visualized in the main pulmonary arteries or the segmental branches. HILAR AND MEDIASTINAL STRUCTURES: No identified masses or abnormal nodes. HARDWARE: Left ventricular assistance device,, left-sided pacemaker, sternotomy, post cholecystectomy . Clips post gastric sleeve procedure UPPER ABDOMEN: No significant findings. Limited exam. THYROID AND OTHER SOFT TISSUES: No masses. No adenopathy. BONES: No acute or significant finding. 3D MIPS: Confirm above findings. OTHER: No other significant finding. IMPRESSION: No CT angio evidence of acute pulmonary emboli. No CTA evidence of acute thoracic aortic dissection or thoracic aortic aneurysm Left ventricular assistive device, pacemaker, clips post cholecystectomy, gastric sleeve procedure. COMMENT: Quality ID # [id number]: Final reports with documentation of one or more dose reduction techniques (e.g., Automated exposure control, adjustment of the mA and/or kV according to patient size, use of iterative reconstruction technique) TECHNICAL DOCUMENTATION: JOB ID: [id number] [employer]- All Rights Reserved Reading location - IP/workstation name: [email or web address] [id number]
[2017-09-17] MEDS ORDERED: LORAZEPAM INJ 2 MG/1 ML VIAL IV ONE (17:00)
--- NOTE | 2017-09-17 17:37 | ER Document Report ---
ED Cardiac - General Mode of Arrival: Wheelchair TRAVEL OUTSIDE OF THE [place] IN LAST 30 DAYS: No <REEMA JEAN - Last Filed: 09/17/17 17:51> <DANIELLE LIMA - Last Filed: 09/17/17 21:00> <ESTHER MCDONALD - Last Filed: 09/17/17 23:27> - General Chief Complaint: Chest Pain Stated Complaint: CHEST PAIN Time Seen by Provider: 09/17/17 11:47 Notes: Patient with a history of LVAD secondary to congestive heart failure and congestive cardiomyopathy says she was walking about 11:00 this morning with her when she suddenly developed left lower anterolateral chest pain. It hurts when she tries to move, talk, or take a deep breath. She has been feeling like she was low on energy, but had not had any chest pain prior to this onset at 11 AM today. She has not had any fever. No cough or cold or chest congestion. No nausea or vomiting or abdominal pains. History of acid reflux. On warfarin and a 325 mg aspirin daily. (REEMA JEAN) - Related Data Allergies/Adverse Reactions: clonazepam [From Klonopin] Allergy (Verified 09/17/17 11:26) ketorolac tromethamine [From Toradol] Allergy (Verified 09/17/17 11:26) lisinopril [Lisinopril] Allergy (Verified 09/17/17 11:26) tramadol [Tramadol] Allergy (Verified 09/17/17 11:26) morphine [Morphine] Adverse Reaction (Verified 09/17/17 14:58) Generalized Itching Past Medical History - General Information source: Patient, Relative - Social History Smoking Status: Never Smoker Frequency of alcohol use: None Drug Abuse: None Family History: Reviewed & Not Pertinent, DM, Hypertension, Other - seizures Patient has suicidal ideation: No Patient has homicidal ideation: No - Past Medical History Cardiac Medical History: Reports: Hx Congestive Heart Failure - Congestive cardiomyopathy, Hx Coronary Artery Disease, Hx Hypertension Pulmonary Medical History: Reports: Hx Asthma GI Medical History: Reports: Hx Gastroesophageal Reflux Disease Psychiatric Medical History: Reports: Hx Depression Past Surgical History: Reports: Hx Cardiac Catheterization - Recent January 2016, Hx Cardiac Surgery - LVD May 28 2017, Hx Cholecystectomy, Hx Orthopedic Surgery - R hip labral tear repair, Hx Pacemaker - Pacemaker/defibrillator, Hx Tubal Ligation - Immunizations Hx Diphtheria, Pertussis, Tetanus Vaccination: Yes Hx Pneumococcal Vaccination: 02/23/12 <REEMA JEAN - Last Filed: 09/17/17 17:51> Review of Systems <REEMA JEAN - Last Filed: 09/17/17 17:51> <DANIELLE LIMA - Last Filed: 09/17/17 21:00> <ESTHER MCDONALD - Last Filed: 09/17/17 23:27> - Review of Systems Notes: REVIEW OF SYSTEMS: CONSTITUTIONAL : Denies fever. Says she is feeling weak and no energy. EENT: Denies eye, ear, nose or mouth or throat pain or other symptoms. CARDIOVASCULAR: See HPI. RESPIRATORY: Denies cough, chest congestion, but some mild shortness of breath. GASTROINTESTINAL: Denies abdominal pain or nausea, vomiting, or diarrhea. GENITOURINARY: Denies difficulty or painful urinating, urinary frequency, blood in urine. MUSCULOSKELETAL: Denies back or neck pain. Denies joint pain or swelling. SKIN: Denies rash or skin lesions. NEUROLOGICAL: Denies LOC or altered mental status. Denies headache. Denies sensory loss or motor deficits. ALL OTHER SYSTEMS REVIEWED AND NEGATIVE. (REEMA JEAN) Physical Exam - Vital signs Interpretation: Normal <REEMA JEAN - Last Filed: 09/17/17 17:51> <DANIELLE LIMA - Last Filed: 09/17/17 21:00> <ESTHER MCDONALD - Last Filed: 09/17/17 23:27> - Vital signs Vitals: Temp Pulse Resp BP Pulse Ox 99.0 F 91 18 116/90 H 100 09/17/17 11:41 09/17/17 11:41 09/17/17 11:41 09/17/17 11:41 09/17/17 11:41 - Notes Notes: PHYSICAL EXAMINATION: GENERAL: Well-appearing, in no acute distress. Anxious. Appears to be in pain. HEAD: Atraumatic, normocephalic. EYES: Pupils equal round and reactive to light, extraocular movements intact. ENT: oropharynx clear without exudates. Moist mucous membranes. NECK: Normal range of motion, supple. LUNGS: Breath sounds clear, bilateral, but more prominent on the right side. No wheezes. HEART: Regular rate and rhythm without murmurs. Continuous wrrr heard. ABDOMEN: Soft, nontender. No guarding or rebound. No masses. BACK: No tenderness throughout entire back. EXTREMITIES: Normal range of motion without pain. NEUROLOGICAL: Normal speech, normal gait. Normal sensory, motor, and reflex exams. Awake, alert, and oriented x3. Cranial nerves normal. PSYCH: Normal mood, normal affect. SKIN: Warm, dry, no rashes. (REEMA JEAN) Course - Laboratory Result Diagrams: 09/17/17 11:55 09/17/17 13:18 - Diagnostic Test Radiology reviewed: Image reviewed, Reports reviewed - CTA of the chest shows no evidence of pulmonary emboli. <REEMA JEAN - Last Filed: 09/17/17 17:51> - Laboratory Result Diagrams: 09/17/17 11:55 09/17/17 13:18 <DANIELLE LIMA - Last Filed: 09/17/17 21:00> - Laboratory Result Diagrams: 09/17/17 11:55 09/17/17 13:18 <ESTHER MCDONALD - Last Filed: 09/17/17 23:27> - Re-evaluation Re-evalutation: 09/17/17 17:47 Patient continued to complain of pain of the left side of her chest, after 100 mg of fentanyl IV and after 7 mg of morphine IV. About an hour ago, patient says she was not feeling well. says that he noted her heart monitor showed a heart rate in the 20s and red color. Nurse at the desk noted at the same time that the patient's heart rate was recording in the 30s. By the time I checked, patient's heart rate was back to 80-90. Patient had no other symptoms except for not feeling well. Patient's labs were all normal. Troponin negative. A CTA of the chest was done and negative for PE. Contacted the LVAD district representative from [facility], who contacted the LVAD physician and they wish to have the patient transferred there for further evaluation and care. 09/17/17 18:03 Still complaining of atypical chest pain, unrelieved with fentanyl and morphine. She is on narcotic pain medications at home and says the only thing she can think of that might help is Dilaudid. We will give her a milligram and see how that does. (REEMA JEAN) 09/17/17 21:00 Pt requests pain medication. Transport to be here in 2 to 2.5 hours. Otherwise stable. (DANIELLE LIMA) 09/17/17 23:25 Transport is here for patient. NAD, AVSS. Requesting more Dilaudid prior to transfer. Stable for ALS transfer to [facility]. (ESTHER MCDONALD) - Vital Signs Vital signs: Temp Pulse Resp BP Pulse Ox 97.9 F 91 15 90/77 L 100 09/17/17 23:14 09/17/17 11:41 09/17/17 23:00 09/17/17 15:01 09/17/17 23:00 - Laboratory Laboratory results interpreted by me: 09/17/17 09/17/17 09/17/17 11:55 11:55 11:55 RBC 3.62 L Hgb 10.3 L Hct 31.0 L RDW 16.2 H PT 22.0 H D-Dimer 2.12 H Carbon Dioxide 09/17/17 13:18 RBC Hgb Hct RDW PT D-Dimer Carbon Dioxide 31 H - Diagnostic Test Radiology results interpreted by me: 09/17/17 17:52 Chest x-ray shows no acute process. Internal defibrillator and pacemaker present. (REEMA JEAN) - EKG Interpretation by Me Additional EKG results interpreted by me: 09/17/17 17:57 EKG uninterpretable due to interference. (REEMA JEAN) Discharge <REEMA JEAN - Last Filed: 09/17/17 17:51> <DANIELLE LIMA - Last Filed: 09/17/17 21:00> <ESTHER MCDONALD - Last Filed: 09/17/17 23:27> - Discharge Clinical Impression: LVAD (left ventricular assist device) present Chest pain Qualifiers: Chest pain type: unspecified Qualified Code(s): R07.9 - Chest pain, unspecified Condition: Stable Disposition: [facility] Referrals: SAUL HUBER MD [Primary Care Provider] - Follow up as needed Scribe Attestation: 09/17/17 23:27 I personally performed the services described in the documentation, reviewed and edited the documentation which was dictated to the scribe in my presence, and it accurately records my words and actions. (ESTHER MCDONALD
[2017-09-17] MEDS ORDERED: HYDROMORPHONE HCL INJ/PF 2 MG/ML AMPULE IV ONE ×3 (17:58→23:26)
--- NOTE | 2017-09-17 22:36 | EKG REPORT ---
SEVERITY:- DEFECTIVE ECG - TECHNICALLY POOR TRACING - PLEASE REPEAT ECG! PROBABLE SINUS RHYTHM IVCD, CONSIDER ATYPICAL RBBB NONSPECIFIC ST DEPRESSION : Confirmed by: Stacy Fleming 17-Sep-2017 22:35:23
== END 2017-09-17 23:37 | disposition short-term general hospital (02) ==
LOC: ER 11:24
DX: R07.89 Other chest pain (principal); I42.0 Dilated cardiomyopathy; I11.0 Hypertensive heart disease with heart failure; I50.9 Heart failure, unspecified; Z95.811 Presence of heart assist device; J45.909 Unspecified asthma, uncomplicated; R53.1 Weakness; F41.9 Anxiety disorder, unspecified; Z79.01 Long term (current) use of anticoagulants; Z79.82 Long term (current) use of aspirin; Z95.810 Presence of automatic (implantable) cardiac defibrillator; Z88.5 Allergy status to narcotic agent; Z88.8 Allergy status to other drugs, medicaments and biological substances; Z79.891 Long term (current) use of opiate analgesic
CPT/HCPCS: 93005; 96376; 99285; 96374; 96375; 36415; 82553; 82550; 85025; 85610; 80053; 84484; 85379; 71046; 71275; 93010; J3010; J2270; J1170; J2060; J2405

== ENCOUNTER → 2018-01-12 | Outpatient (CLI) | payer MEDICAID, MEDICARE ==
--- NOTE | 2018-01-12 16:19 | WOMENS IMAGING REPORT ---
EXAM DESCRIPTION: BILAT SCREENING MAMMO W/CAD COMPLETED DATE/TIME: 01/12/2018 2:34 pm REASON FOR STUDY: BILATERAL SCREENING MAMMO /Z12.31Z12.31 ENCNTR SCREEN MAMMOGRAM FOR MALIGNANT JOSE MANUEL PLASM OF CORRINE COMPARISON: Baseline study TECHNIQUE: Standard craniocaudal and mediolateral oblique views of each breast recorded using Cardio controla l acquisition. LIMITATIONS: None. FINDINGS: RIGHT BREAST MASSES: No suspicious masses. CALCIFICATIONS: No new or suspicious calcifications. ARCHITECTURAL DISTORTION: None. DEVELOPING DENSITY: None. ASYMMETRY: None noted. OTHER: No other significant findings. LEFT BREAST MASSES: No suspicious masses. Benign intramammary lymph node lower inner quadrant left breast CALCIFICATIONS: Calcifications in the upper outer quadrant left breast, for which additional compress ion magnification views and left breast 90 mediolateral view recommended ARCHITECTURAL DISTORTION: None. DEVELOPING DENSITY: None. ASYMMETRY: None noted. OTHER: No other significant findings. Read with the assistance of CAD. .[facility] - R2 [employer] Version 1.3 .[facility] Imaging - R2 [employer] Version 1.3 .[facility] - R2 [employer] Version 2.4 .[facility] - R2 [employer] Version 2.4 .[facility] - R2 [facility] Version 9.2 IMPRESSION: No mammographic evidence for malignancy right breast. Left breast microcalcifications for which diagnostic mammograms are recommended BREAST DENSITY: b. There are scattered areas of fibroglandular density. BIRAD: 0 Incomplete: Needs Additional Imaging Evaluation and/or prior Mammograms for Comparison. RECOMMENDATION: RECOMMENDED FOLLOW-UP: Left breast diagnostic mammograms for microcalcifications The patient will be contacted for additional imaging. COMMENT: The patient has been notified of the results by letter per SA requirements. Additional no tification policies are in place for contacting patient with suspicious or incomplete findings. Quality ID #[id number]: The [employer] recommends an annual screening mammogram for women aged 40 years or over. This facility utilizes a reminder system to ensure that all patients receive reminder letters, and/or direct phone calls for appointments. This includes reminders for routine scr eening mammograms, diagnostic mammograms, or other Breast Imaging Interventions when appropriate. Th is patient will be placed in the appropriate reminder system. The [employer] (ACR) has developed recommendations for screening MRI of the breast s in certain patient populations, to be used in conjunction with mammography. Breast MRI surveillanc e may be appropriate for women with more than 20% lifetime risk of developing breast cancer as deter mined by genetic testing, significant family history of the disease, or history of mantle radiation f or Hodgkins Disease. ACR Practice Guidelines 2008. TECHNICAL DOCUMENTATION: FINDING NUMBER: (1) ASSESSMENT: (1) JOB ID: [id number] [employer]- All Rights Reserved Reading location - IP/workstation name: [facility]
== END ==
LOC: WI 13:55
PROVIDERS: ATTEND Nurse Practitioner Family
DX: Z12.31 Encounter for screening mammogram for malignant neoplasm of breast (principal); R92.0 Mammographic microcalcification found on diagnostic imaging of breast
CPT/HCPCS: 77067

== ENCOUNTER → 2018-01-28 | Outpatient (CLI) | payer MEDICARE, MEDICAID ==
--- NOTE | 2018-01-28 10:38 | WOMENS IMAGING REPORT ---
EXAM DESCRIPTION: LEFT DIAGNOSTIC MAMMO W/CAD COMPLETED DATE/TIME: 01/28/2018 10:08 am REASON FOR STUDY: MICROCALCIFICATIONS R92.0 MAMMOGRAPHIC MICROCALCIFICATION FOUND ON DX IMAGING OF COMPARISON: 01/12/2018 TECHNIQUE: True lateral and magnification views. LIMITATIONS: Battery pack. FINDINGS: BREAST: left MASSES: No suspicious masses. CALCIFICATIONS: Upper outer quadrant uniform density without evidence of branching or associated mass . ARCHITECTURAL DISTORTION: None. DEVELOPING DENSITY: None. ASYMMETRY: None noted. OTHER: No other significant findings. IMPRESSION: Benign findings. BREAST DENSITY: b. There are scattered areas of fibroglandular density. BIRAD: 2 Benign findings. RECOMMENDATION: RECOMMENDED FOLLOW UP: Birads 1 or 2: The patient should resume routine screening . SPECIFIC INTERVENTION/IMAGING/CONSULTATION RECOMMENDED:No additional intervention/ imaging/consultati on needed at this time. COMMUNICATION:The imaging findings were not discussed with the patient. Her referring provider has be en notified of the findings. COMMENT: The patient has been notified of the results by letter per SA requirements. Additional no tification policies are in place for contacting patient with suspicious or incomplete findings. Quality ID #[id number]: The [employer] recommends an annual screening mammogram for women aged 40 years or over. This facility utilizes a reminder system to ensure that all patients receive reminder letters, and/or direct phone calls for appointments. This includes reminders for routine scr eening mammograms, diagnostic mammograms, or other Breast Imaging Interventions when appropriate. Th is patient will be placed in the appropriate reminder system. The [employer] (ACR) has developed recommendations for screening MRI of the breast s in certain patient populations, to be used in conjunction with mammography. Breast MRI surveillanc e may be appropriate for women with more than 20% lifetime risk of developing breast cancer as deter mined by genetic testing, significant family history of the disease, or history of mantle radiation f or Hodgkins Disease. ACR Practice Guidelines 2008. TECHNICAL DOCUMENTATION: FINDING NUMBER: (1) ASSESSMENT: (1) JOB ID: [id number] [employer]- All Rights Reserved Reading location - IP/workstation name: [email or web address]
== END ==
LOC: WI 09:48
PROVIDERS: ATTEND Nurse Practitioner Family
DX: R92.0 Mammographic microcalcification found on diagnostic imaging of breast (principal)